=== PATIENT | male | born 1975 | race Caucasian/White ===

== ENCOUNTER 2020-11-06 15:12 | Inpatient (IN) ==
[2020-11-06] MEDS ORDERED: SODIUM CHLORIDE 0.9% 1000ML 1,000 ML IV SCH (15:45)
[2020-11-06] MEDS ORDERED: LORazepam 2 MG/4 ML VIAL IV PRN (15:45)
[2020-11-06] MEDS: NICOTINE 21 MG/24 HR TDSY TD SCH (15:56)
--- NOTE | 2020-11-06 16:20 | CT Scan Report ---
CT head/brain wo con CLINICAL HISTORY: Seizure. Head trauma COMPARISON STUDY: 10/17/2020 TECHNIQUE: Axial CT of the brain is performed from the vertex to the skull base. IV contrast was not administered for this examination. A dose lowering technique was utilized adhering to the principles of ALARA. CT DOSE: 614.27 mGy.cm FINDINGS: No intra or extra-axial mass lesions are visualized. There is no CT evidence of acute cortical infarc tion. There is no evidence of midline shift. There is no acute hemorrhage. No calvarial fractures ar e visualized. There is no evidence of pathologic ventricular dilatation. There is no evidence of acute sinusitis IMPRESSION: No acute intracranial findings ACT 112: Negative or not required by law. Electronically signed by: Ross Booth M.D. 11/06/2020 4:18 PM
[2020-11-06 16:23] LABS: Partial Thromboplastin Time 25.1 Seconds (21.0-31.0); Prothrombin Time 10.4 Seconds (9.0-12.0)
[2020-11-06 16:30] LABS: Blood Urea Nitrogen 9 mg/dl (7-18); Carbon Dioxide 22 mmol/L (21-32); Chloride 109 mmol/L (98-107); Potassium 4.2 mmol/L (3.5-5.1); Sodium 136 mmol/L (136-145)
[2020-11-06 16:31] LABS: Alanine Aminotransferase 27 U/L (12-78); Albumin Level 4.3 gm/dl (3.4-5.0); Aspartate Aminotransferase 11 U/L (15-37); BUN Creatinine Ratio 6.6 (10-20); C Reactive Protein < 0.29 mg/dl (0-0.29); Calcium 9.2 mg/dl (8.5-10.1); Creatinine Clr Calc Pharmacy 75.1 ml/min; Est GFR (Non-African American) 63.8; Glucose 105 mg/dl (70-99); Lipase 63 U/L (73-393); Magnesium 2.8 mg/dl (1.8-2.4)
[2020-11-06 16:40] LABS: Albumin Globulin Ratio 1.2 (0.9-2); Alkaline Phosphatase 47 U/L (45-117); Bilirubin,Total 0.3 mg/dl (0.2-1); Creatine Kinase 194 U/L (39-308); Globulin 3.6 gm/dl (2.5-4.0); Total Protein 7.9 gm/dl (6.4-8.2); Troponin I < 0.015 ng/ml (0-0.045)
[2020-11-06 16:41] LABS: Basophils # (auto) 0.03 K/uL (0-0.2); Basophils % (auto) 0.2 %; Eosinophils # (auto) 0.04 K/uL (0-0.5); Eosinophils % (auto) 0.3 %; Hematocrit (blood only) 42.1 % (42-52); Hemoglobin 14.8 g/dL (14.0-18.0); Immature Granulocytes # (auto) 0.05 K/uL (0.00-0.02); Immature Granulocytes % (auto) 0.4 %; Lymphocytes # (auto) 0.83 K/uL (1.2-3.4); Lymphocytes % (auto) 6.1 %; Mean Corpuscular Hemoglobin 31.5 pg (25-34); Mean Corpuscular Hgb Conc 35.2 g/dL (32-36); Mean Corpuscular Volume 89.6 fL (80-100); Mean Platelet Volume 8.7 fL (7.4-10.4); Monocytes # (auto) 0.74 K/uL (0.11-0.59); Monocytes % (auto) 5.4 %; Neutrophils # (auto) 11.94 K/uL (1.4-6.5); Neutrophils % (auto) 87.6 %; Platelet Count 386 K/uL (130-400); RDW Coefficient of Variation 13.8 % (11.5-14.5); RDW Standard Deviation 45.4 fL (36.4-46.3); White Blood Count 13.63 K/uL (4.8-10.8)
[2020-11-06 16:56] LABS: Lyme Ab IgG w/WB Rflx Negative (Negative); Lyme Ab IgM w/WB Rflx Negative (Negative)
[2020-11-06 17:52] LABS: Influenza A virus by PCR Negative (Neg); Influenza B virus by PCR Negative (Neg); RSV by PCR Negative (Neg); SARS CoV2 RNA(COVID-19) InHosp NEGATIVE (Negative)
[2020-11-06 18:47] LABS: Appearance Urine Clear (Clear); Bilirubin Urine Negative (Negative); Blood Urine Negative (Negative); Color Urine Yellow; Glucose Urine UA Negative (Negative); Ketones Urine Negative (Negative); Leukocyte Esterase Urine Negative (Negative); Nitrite Urine Negative (Negative); Protein Urine Negative (Negative); Specific Gravity Urine 1.011 (1.000-1.030); Urobilinogen Urine Negative (Negative); pH Urine 6.5 (4.5-7.5)
[2020-11-06 19:05] LABS: Amphetamines+Metham, Urine Neg (Neg); Barbiturates, Urine Pos (Neg); Benzodiazepine, Urine Neg (Neg); Cocaine, Urine Neg (Neg); MDMA (Ecstacy), Urine Neg (Neg); Methadone, Urine Neg (Neg); Opiate, Urine Neg (Neg); Phencyclidine, Urine Neg (Neg)
[2020-11-06] MEDS ORDERED: amLODIPine BESYLATE 5 MG TAB PO STA (19:09)
--- NOTE | 2020-11-06 19:13 | History & Physical Report ---
Date of Service November 06, 2020 Assessment & Plan (1) Observed seizure-like activity: Convincing story of tonic-clonic seizures in the setting of hypertension, anxiety, insomnia and caffeine use MRI brain previously normal, no need to repeat this EEG Lorazepam 2 mg IV PRN for further seizures Consult neurology Consider Topamax for migraine prophylaxis, mood stabilization, insomnia and anticonvulsant - will defer starting until after EEG performed. (2) Malignant hypertension: Amlodipine 10mg PO daily Consider addition of propranolol for migraine prophylaxis in addition if continued elevated BP requiring hydralazine Hydralazine 10mg IV PRN (3) Insomnia: Lorazepam 1mg PO HS PRN (try to avoid as may effect EEG results (4) ADHD: Avoid Adderall in setting of recent seizure (5) Anxiety: Significantly agitated on exam, possibly manic although unclear history of true manic episodes. Racing disorganized thoughts would suggest benefit from anti-psychotic but need to avoid in setting of recent seizure. Continue fluoxetine 40mg PO HS Consider addition of Topamax as mood stabilizer as above. Consult psychiatry given flight of ideas with possible shantelle Admission and Anticipated Discharge Date Admission Date: November 06, 2020 History of Present Illness Chief Complaint: Seizure Primary Care Provider: NO PCP Asher Nair is a 45-year-old male who presents to the ER after a seizure. The seizure occurred earlier today and was partially witnessed by his daughter. She reports he had a 1 to 2-minute seizure and from her description sounds tonic-clonic in nature however she did not witness the start of it. With her back turned the patient was coming back from the bathroom to his bed at which point he fell to the ground. She noted his extremities went very stiff and then he started shaking all 4 extremities. The patient bit his tongue. This is similar to his previous seizure when he came to the emergency room approximately 3 weeks ago and left AGAINST MEDICAL ADVICE. His reports his seizures seem to occur when his blood pressure increases, increased stress and insomnia. He is exhausted when he has them. He appears to be most anxious at night and has a snowboarding effect. He reports having his first seizure approximately 1 year ago. He does not feel his seizure coming on. Always bites his tongue. No urine or bowel incontinence. He cannot member what happens during the episode. After the episode he had his postictal and on one occasion cannot remember his 's name. He also notes a longstanding history of hypertension although notes he is previously being inconsistent taking medication and is trying to find the right "one" that works for his blood pressure. He currently reports compliance with amlodipine 10 mg p.o. at bedtime. He takes fluoxetine 40 mg at bedtime for the past 2 years for anxiety. He does report improvement in his anxious thoughts when he was taking 80 mg and is wondering whether he should go back up to this. He has a longstanding history of migraines/cluster headaches as far back as he remembers. He was prescribed opiate prescription medication for 12 years and managed to wean himself off. He describes his migraines as a throbbing pain, pressure, can last for 2 days, pain behind his eyes with associated nausea. Does not feel these coming on and no association with light. He is currently not on any migraine prophylaxis and never tried monoclonal antibody injections. He reports sumatriptan was helpful for the headaches but caused significant side effects with the rest of his body. PDMP was reviewed: Adderall picked up 09/2019: Prescribed for ADHD although he notes some of this pr escription is for his . He reports running out of medication and has not taken for the past 3 weeks. Fioricet with codeine picked up 10/28: reported last taking this 2 months ago however urine toxicology was positive for barbiturates in the ER. Xanax picked up 10/27: The patient reports he has been high strung since he was 14 years old and has been on and off benzodiazepines since then. Most recently he was switched from diazepam back to Xanax. He takes this up to once a day. Last took Xanax 4 to 5 days ago. He is prescribed this by his PCP for anxiety. In the ER no further seizures have occurred. CT head was repeated with no acute intracranial abnormalities. Prolactin has been normal both occasions. Urine toxicology positive for barbiturates. He was referred to medicine for admission ongoing management of seizures. Allergies Allergy/AdvReac Type Severity Reaction Status Date / Time No Known Allergies Allergy Verified 11/06/20 15:48 Home Medications Medication Instructions Recorded Confirmed Type acetaminophen [Tylenol Extra 1,000 mg PO QID PRN 10/17/20 11/06/20 History Strength] alprazolam [Xanax] 2 mg PO BID PRN 10/17/20 11/06/20 History dextroamphetamine-amphetamine 30 mg PO BID 10/17/20 11/06/20 History [Adderall] diphenhydramine HCl [Benadryl] 50 mg PO DAILY PRN 10/17/20 11/06/20 History amlodipine [Norvasc] 0 mg PO DAILY 11/06/20 11/06/20 History fluoxetine 40 mg PO PM 11/06/20 11/06/20 History Past Med/Surg History Medical History ADHD Anxiety History of seizure Hypertension Insomnia Surgical History No pertinent past surgical history Family History Denies family history of Seizure Social History Smoking Status: Former smoker Tobacco Type: E-cigarettes / Vaping Second Hand Exposure: No; Do You Dip or Chew Tobacco: No; Tobacco Cessation Education Requested by Patient: No Hx Alcohol Use: No Hx Substance Use: No Preferred Language: Cambodian Communication Ability: Effective Securities Counselor Required: No Beliefs That Will Affect Care: None marital status: Current Living Situation: Family How many Children do You have: 2 Other Information That Helps Us Care for You: No Feels Safe at Home: Yes Safety Concerns: Feels Safe At This Time caffeine: Yes (Dr Yañez 2-3 20oz) Assistive Devices: None Review of Systems Review of Systems: All systems reviewed & are unremarkable except as noted in HPI & below Physical Exam Constitutional: WD/WN, vitals as above Eyes: PERRL, conjunctivae normal, anicteric sclerae ENMT: external ear and nose normal, oropharynx normal Neck: trachea midline, no thyromegaly Respiratory: normal respiratory effort, lungs clear to auscultation Cardiovascular: RRR, no murmur, no edema Gastrointestinal (Abdomen): normal bowel sounds, soft, nontender, no hepatosplenomegaly Musculoskeletal: no cyanosis or clubbing, extremities motor strength 5/5 Skin: no rashes, warm and dry Neurologic: CN's II-XI intact bilaterally, moves all extremities and awake; no focal motor deficits and not confused Speech / Cognition: normal speech Motor/Sensory: no tremor and no sensory deficit Psychiatric: Orientation: alert and oriented x 3 Eye Contact: + fair eye contact Motor Behavior: + psychomotor agitation Speech: + pressured speech Affect: + anxious affect Mood: + anxious mood Thought Process: + circumstantial thought process and + flight of ideas Thought Content: reality based without delusions Cognition: remote memory grossly intact and language grossly intact; + recent memory not intact and + attention not intact Results & Data Results & Data ([facility]) Vital Signs (Past 12 Hours) Vital Signs Temp Pulse Resp BP Pulse Ox 11/06/20 18:30 101 H 19 174/112 H 97 11/06/20 18:00 95 H 13 167/101 H 97 11/06/20 17:33 84 15 98 11/06/20 17:00 86 13 160/103 H 97 11/06/20 16:30 88 13 97 11/06/20 16:00 94 H 18 135/82 95 11/06/20 15:39 99 H 17 128/86 11/06/20 15:23 37.0 C 110 H 14 120/[address] head/brain wo con IMPRESSION: No acute intracranial findings Medications Administered ER medications given: NSS 1 hour bolus ECG Indication: altered mental status Rate (beats per minute): 97 Rhythm: normal sinus Comparison ECG Date: from (October 17, 2020) Change: no significant change Code Status & VTE Plan Code Status Full VTE Prophylaxis Plan VTE Prophylaxis will be ordered: No Reason for no VTE drug order: Treatment not indicated Reason for no VTE mechanical prophylaxis: Treatment not indicated PG Care Time/CCT Total # of Minutes Spent Total Time Spent with Patient: Total time spent is greater than 50% in coordination of care (as documented) at patient's floor/unit and/or counseling patient: Coding Level of Care Code 38935 OBS Care - Level 3 Diagnoses Observed seizure-like activity R56.9 Malignant hypertension I10 Insomnia F51.04 Insomnia type: psychophysiologic ADHD F90.1 Attention deficit-hyperactivity disorder type: predominantly hyperactive Anxiety F41.9 (1) Insomnia Insomnia type: psychophysiologic Qualified Code(s): F51.04 - Psychophysiologic insomnia (2) ADHD Attention deficit-hyperactivity disorder type: predominantly hyperactive Qualified Code(s): F90.1 - Attention-deficit hyperactivity disorder, predominantly hyperactive type
[2020-11-06] MEDS ORDERED: amLODIPine BESYLATE 5 MG TAB PO SCH (20:48)
[2020-11-06] MEDS ORDERED: hydrALAZINE HCL 20 MG/ML VIAL IV PRN (21:23)
[2020-11-06] MEDS ORDERED: QUEtiapine FUMARATE 25 MG TABLET PO PRN (21:23)
[2020-11-06] MEDS ORDERED: ACETAMINOPHEN 500 MG TAB PO PRN (21:24)
[2020-11-06] MEDS: FLUoxetine HCL 20 MG CAP PO SCH (22:21)
[2020-11-06] MEDS: ACETAMINOPHEN 325 MG TAB PO PRN (22:22)
--- NOTE | 2020-11-06 22:52 | Emergency Department Note ---
History of Present Illness General Chief complaint: Seizure Stated complaint: SEIZURE, STRUCK HEAD Time Seen by Provider: 11/06/20 15:23 History of Present Illness Maximum Pain Intensity: 7 This is a 45-year-old male presenting to the emergency department via ambulance for witnessed seizure episode. The patient was at home this afternoon and was in the bedroom. Evidently he took Benadryl for some sinus congestion and shortly after had a seizure in front of his teenage daughter. The patient did strike his head and have a several minute shaking episode. The patient had a post ictal phase of roughly 10 to 15 minutes, only arousing when police arrived after the daughter called 911. The patient does have a history of 5 or 6 seizures over the past few years. He did have one 3 weeks ago that was very similar to this, however the patient left the emergency department AGAINST MED [facility] ADVICE. He was given information for multiple neurology teams to follow-up with, but has not followed through with this. At that visit he did have imaging including MRI and MRV. He moved to the area from [place] 2 months ago and does not have typical services. He states that previous seizures were felt to be from elevated blood pressure, where at times it was 220/120. He has not had an elevated blood pressure today. He denies drug or alcohol use. The patient did receive Ativan 2 mg prehospital and this did seem to completely resolve his symptoms. He does have some pain in his mouth and may have bit the inside of his lip, but not his tongue. No extremity pain or injury. He rates his current discomfort a 7/10. Home Medications Medication Instructions Recorded Confirmed Type acetaminophen [Tylenol Extra 1,000 mg PO QID PRN 10/17/20 11/06/20 History Strength] alprazolam [Xanax] 2 mg PO BID PRN 10/17/20 11/06/20 History dextroamphetamine-amphetamine 30 mg PO BID 10/17/20 11/06/20 History [Adderall] diphenhydramine HCl [Benadryl] 50 mg PO DAILY PRN 10/17/20 11/06/20 History amlodipine [Norvasc] 0 mg PO DAILY 11/06/20 11/06/20 History fluoxetine 40 mg PO PM 11/06/20 11/06/20 History Allergies Allergy/AdvReac Type Severity Reaction Status Date / Time No Known Allergies Allergy Verified 11/06/20 15:48 Past Med/Surg History Medical History ADHD Anxiety History of seizure Hypertension Insomnia Surgical History No pertinent past surgical history Family History Denies family history of Seizure Social History Smoking Status: Former smoker Tobacco Type: E-cigarettes / Vaping Second Hand Exposure: No; Do You Dip or Chew Tobacco: No; Tobacco Cessation Education Requested by Patient: No Hx Alcohol Use: No Hx Substance Use: No Preferred Language: Portuguese Communication Ability: Effective 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 Beliefs That Will Affect Care: None marital status: Current Living Situation: Family How many Children do You have: 2 Other Information That Helps Us Care for You: No Feels Safe at Home: Yes Safety Concerns: Feels Safe At This Time caffeine: Yes (Dr Yañez 2-3 20oz) Assistive Devices: None Review of Systems A total of 10 systems reviewed and were otherwise negative Physical Exam Vital Signs Vital Signs - 24 hr 11/06/20 15:23 11/06/20 15:39 11/06/20 15:55 Temperature 37.0 C Temperature Source Oral Pulse Rate 110 H 99 H Pulse Rate from SpO2 Sensor Respiratory Rate 14 17 Respiratory Effort / Characteristics Non-Labored Spontaneous Respiratory Depth Normal Respiratory Pattern Regular Blood Pressure 120/73 128/86 Blood Pressure Mean 88 100 Pulse Oximetry 96 Oxygen Delivery Method Room Air Room Air Sepsis Recent Fever Within 48 Hours No Sepsis New/Unexplained Change in Mental Status No Sepsis Action Taken by Nursing No Action Required 11/06/20 16:00 11/06/20 16:30 11/06/20 17:00 Temperature Temperature Source Pulse Rate 94 H 88 86 Pulse Rate from SpO2 Sensor 93 H 87 87 Respiratory Rate 18 13 13 Respiratory Effort / Characteristics Respiratory Depth Respiratory Pattern Blood Pressure 135/82 160/103 H Blood Pressure Mean 99 122 Pulse Oximetry 95 97 97 Oxygen Delivery Method Room Air Room Air Room Air Sepsis Recent Fever Within 48 Hours Sepsis New/Unexplained Change in Mental Status Sepsis Action Taken by Nursing 11/06/20 17:33 11/06/20 18:00 11/06/20 18:30 Temperature Temperature Source Pulse Rate 84 95 H 101 H Pulse Rate from SpO2 Sensor 84 96 H 105 H Respiratory Rate 15 13 19 Respiratory Effort / Characteristics Respiratory Depth Respiratory Pattern Blood Pressure 167/101 H 174/112 H Blood Pressure Mean 123 132 Pulse Oximetry 98 97 97 Oxygen Delivery Method Room Air Room Air Room Air Sepsis Recent Fever Within 48 Hours Sepsis New/Unexplained Change in Mental Status Sepsis Action Taken by Nursing 11/06/20 18:31 Temperature Temperature Source Pulse Rate 92 H Pulse Rate from SpO2 Sensor 92 H Respiratory Rate 17 Respiratory Effort / Characteristics Respiratory Depth Respiratory Pattern Blood Pressure Blood Pressure Mean Pulse Oximetry 97 Oxygen Delivery Method Sepsis Recent Fever Within 48 Hours Sepsis New/Unexplained Change in Mental Status Sepsis Action Taken by Nursing VITALS: Vitals are noted on the nurse's note and reviewed by myself. Vital signs stable. GENERAL: Well-developed, well-nourished, white male, who is in no acute distress and resting comfortably. Patient is cooperative with the examination. HEAD: Normocephalic atraumatic. MOUTH: Mucous membranes moist. Tonsils are not enlarged. Pharynx without erythema, blood, or exudate. Uvula midline. Airway patent. NECK: Supple without nuchal rigidity. No lymphadenopathy. No thyromegaly. C ervical spine is nontender. HEART: Regular rate and rhythm without murmurs gallops or rubs. LUNGS: Clear to auscultation bilaterally without wheezes, rales or rhonchi. No retractions or accessory muscle use. ABDOMEN: Positive normal bowel sounds x 4. Soft, nontender, without masses or organomegaly. No guarding or rebound tenderness. MUSCULOSKELETAL: No muscle atrophy, erythema, or edema noted. Full range of motion in all extremities. NEURO: Patient was alert and oriented to person place and time. CN II through XII grossly intact. GCS 15 Course Administered Medications Acetaminophen (Acetaminophen 325 Mg Tab) 650 mg PO Q4H PRN PRN Reason: Pain or Fever Stop: 12/06/20 20:47 Last Admin: 11/06/20 22:22 Dose: 650 mg Documented by: [id number] Fluoxetine HCl (Fluoxetine Hcl 20 Mg Cap) 40 mg PO PM NICHOLAS Stop: 12/06/20 21:24 Last Admin: 11/06/20 22:21 Dose: 40 mg Documented by: [id number] Nicotine (Nicotine 21 Mg/24 Hr Tdsy) 21 mg TD QAM NICHOLAS Stop: 12/06/20 15:44 Last Admin: 11/06/20 15:56 Dose: 21 mg Documented by: [id number] Discontinued Medications Amlodipine Besylate (Amlodipine Besylate 5 Mg Tab) 5 mg PO NOW STA Stop: 11/06/20 19:10 Last Admin: 11/06/20 19:26 Dose: 5 mg Documented by: [id number] Amlodipine Besylate (Amlodipine Besylate 5 Mg Tab) 5 mg PO DAILY NICHOLAS Stop: 12/06/20 20:47 Last Admin: 11/06/20 21:17 Dose: 5 mg Documented by: [id number] Sodium Chloride (Nss 1000ml) 1,000 mls @ 999 mls/hr IV .Q1H1M NICHOLAS Stop: 11/06/20 16:45 Last Infusion: 11/06/20 16:59 Dose: 0 mls/hr Documented by: [id number] Admin: 11/06/20 15:58 Dose: 999 mls/hr Documented by: [id number] Medical Decision Making Differential Diagnosis Differential diagnosis: Etiologies such as Seizure, benign positional vertigo, labrynthitis, dehydration, hypovolemia, anemia, tumor, infection, hypoglycemia, electrolyte abnormalities, cardiac sources, toxicological sources, central neurologic process, as well as others were entertained. Laboratory Data Result diagrams: 11/06/20 15:52 11/06/20 15:52 Lab Results 11/06/20 11/06/20 11/06/20 Range/Units 15:52 15:52 15:52 WBC 13.63 H (4.8-10.8) K/uL RBC 4.70 (4.7-6.1) M/uL Hgb 14.8 (14.0-18.0) g/dL Hct 42.1 (42-52) % MCV 89.6 (80-100) fL MCH 31.5 (25-34) pg MCHC 35.2 (32-36) g/dL RDW Std Deviation 45.4 (36.4-46.3) fL RDW Coeff of [place] 13.8 (11.5-14.5) % Plt Count 386 (130-400) K/uL MPV 8.7 (7.4-10.4) fL Immature Gran % (Auto) 0.4 % Neut % (Auto) 87.6 % Lymph % (Auto) 6.1 % Bowman % (Auto) 5.4 % Eos % (Auto) 0.3 % Baso % (Auto) 0.2 % Neut # (Auto) 11.94 H (1.4-6.5) K/uL Lymph # (Auto) 0.83 L (1.2-3.4) K/uL Bowman # (Auto) 0.74 H (0.11-0.59) K/uL Eos # (Auto) 0.04 (0-0.5) K/uL Baso # (Auto) 0.03 (0-0.2) K/uL Immature Gran # (Auto) 0.05 H (0.00-0.02) K/uL ESR (0-15) mm/hr PT 10.4 (9.0-12.0) Seconds INR 1.0 (0.9-1.1) APTT 25.1 (21.0-31.0) Seconds PTT Ratio 1.0 Sodium 136 (136-145) mmol/L Potassium 4.2 (3.5-5.1) mmol/L Chloride 109 H (98-107) mmol/L Carbon Dioxide 22 (21-32) mmol/L Anion Gap 6.0 (3-11) BUN 9 (7-18) mg/dl Creatinine 1.35 (0.6-1.4) mg/dl Est Cr Clr Drug Dosing 75.1 ml/min Est GFR ( Amer) 74.0 Est GFR (Non-Af Amer) 63.8 BUN/Creatinine Ratio 6.6 L (10-20) Glucose 105 H (70-99) mg/dl Calcium 9.2 (8.5-10.1) mg/dl Magnesium 2.8 H (1.8-2.4) mg/dl Total Bilirubin 0.3 (0.2-1) mg/dl AST 11 L (15-37) U/L ALT 27 (12-78) U/L Alkaline Phosphatase 47 (45-117) U/L Total Creatine Kinase 194 (39-308) U/L Troponin I < 0.015 (0-0.045) ng/ml C-Reactive Protein < 0.29 (0-0.29) mg/dl Total Protein 7.9 (6.4-8.2) gm/dl Albumin 4.3 (3.4-5.0) gm/dl Globulin 3.6 (2.5-4.0) gm/dl Albumin/Globulin Ratio 1.2 (0.9-2) Lipase 63 L (73-393) U/L TSH 2.050 (0.300-4.500) uIu/ml Prolactin ng/ml Ethyl Alcohol mg/dL (0-3) mg/dl Lyme Disease IgG Ab (Negative) Lyme Disease IgM Ab (Negative) COVID-19 Eval Order SARS-CoV-2 (PCR) (Negative) Influenza Type A (PCR) (Neg) Influenza Type B (PCR) (Neg) RSV (RT-PCR) (Neg) 11/06/20 11/06/20 11/06/20 Range/Units 15:52 15:52 15:52 WBC (4.8-10.8) K/uL RBC (4.7-6.1) M/uL Hgb (14.0-18.0) g/dL Hct (42-52) % MCV (80-100) fL MCH (25-34) pg MCHC (32-36) g/dL RDW Std Deviation (36.4-46.3) fL RDW Coeff of [place] (11.5-14.5) % Plt Count (130-400) K/uL MPV (7.4-10.4) fL Immature Gran % (Auto) % Neut % (Auto) % Lymph % (Auto) % Bowman % (Auto) % Eos % (Auto) % Baso % (Auto) % Neut # (Auto) (1.4-6.5) K/uL Lymph # (Auto) (1.2-3.4) K/uL Bowman # (Auto) (0.11-0.59) K/uL Eos # (Auto) (0-0.5) K/uL Baso # (Auto) (0-0.2) K/uL Immature Gran # (Auto) (0.00-0.02) K/uL ESR (0-15) mm/hr PT (9.0-12.0) Seconds INR (0.9-1.1) APTT (21.0-31.0) Seconds PTT Ratio Sodium (136-145) mmol/L Potassium (3.5-5.1) mmol/L Chloride (98-107) mmol/L Carbon Dioxide (21-32) mmol/L Anion Gap (3-11) BUN (7-18) mg/dl Creatinine (0.6-1.4) mg/dl Est Cr Clr Drug Dosing ml/min Est GFR ( Amer) Est GFR (Non-Af Amer) BUN/Creatinine Ratio (10-20) Glucose (70-99) mg/dl Calcium (8.5-10.1) mg/dl Magnesium (1.8-2.4) mg/dl Total Bilirubin (0.2-1) mg/dl AST (15-37) U/L ALT (12-78) U/L Alkaline Phosphatase (45-117) U/L Total Creatine Kinase (39-308) U/L Troponin I (0-0.045) ng/ml C-Reactive Protein (0-0.29) mg/dl Total Protein (6.4-8.2) gm/dl Albumin (3.4-5.0) gm/dl Globulin (2.5-4.0) gm/dl Albumin/Globulin Ratio (0.9-2) Lipase (73-393) U/L TSH (0.300-4.500) uIu/ml Prolactin 12.48 ng/ml Ethyl Alcohol mg/dL < 3.0 (0-3) mg/dl Lyme Disease IgG Ab Negative (Negative) Lyme Disease IgM Ab Negative (Negative) COVID-19 Eval Order SARS-CoV-2 (PCR) (Negative) Influenza Type A (PCR) (Neg) Influenza Type B (PCR) (Neg) RSV (RT-PCR) (Neg) 11/06/20 11/06/20 11/06/20 Range/Units 16:00 16:55 16:55 WBC (4.8-10.8) K/uL RBC (4.7-6.1) M/uL Hgb (14.0-18.0) g/dL Hct (42-52) % MCV (80-100) fL MCH (25-34) pg MCHC (32-36) g/dL RDW Std Deviation (36.4-46.3) fL RDW Coeff of [place] (11.5-14.5) % Plt Count (130-400) K/uL MPV (7.4-10.4) fL Immature Gran % (Auto) % Neut % (Auto) % Lymph % (Auto) % Bowman % (Auto) % Eos % (Auto) % Baso % (Auto) % Neut # (Auto) (1.4-6.5) K/uL Lymph # (Auto) (1.2-3.4) K/uL Bowman # (Auto) (0.11-0.59) K/uL Eos # (Auto) (0-0.5) K/uL Baso # (Auto) (0-0.2) K/uL Immature Gran # (Auto) (0.00-0.02) K/uL ESR 11 (0-15) mm/hr PT (9.0-12.0) Seconds INR (0.9-1.1) APTT (21.0-31.0) Seconds PTT Ratio Sodium (136-145) mmol/L Potassium (3.5-5.1) mmol/L Chloride (98-107) mmol/L Carbon Dioxide (21-32) mmol/L Anion Gap (3-11) BUN (7-18) mg/dl Creatinine (0.6-1.4) mg/dl Est Cr Clr Drug Dosing ml/min Est GFR ( Amer) Est GFR (Non-Af Amer) BUN/Creatinine Ratio (10-20) Glucose (70-99) mg/dl Calcium (8.5-10.1) mg/dl Magnesium (1.8-2.4) mg/dl Total Bilirubin (0.2-1) mg/dl AST (15-37) U/L ALT (12-78) U/L Alkaline Phosphatase (45-117) U/L Total Creatine Kinase (39-308) U/L Troponin I (0-0.045) ng/ml C-Reactive Protein (0-0.29) mg/dl Total Protein (6.4-8.2) gm/dl Albumin (3.4-5.0) gm/dl Globulin (2.5-4.0) gm/dl Albumin/Globulin Ratio (0.9-2) Lipase (73-393) U/L TSH (0.300-4.500) uIu/ml Prolactin ng/ml Ethyl Alcohol mg/dL (0-3) mg/dl Lyme Disease IgG Ab (Negative) Lyme Disease IgM Ab (Negative) COVID-19 Eval Order CovFluRsv at [facility] SARS-CoV-2 (PCR) NEGATIVE (Negative) Influenza Type A (PCR) Negative (Neg) Influenza Type B (PCR) Negative (Neg) RSV (RT-PCR) Negative (Neg) Imaging Data Radiologist's Impression: Head CT 11/06/20 15:38 CT head/brain wo con CLINICAL HISTORY: Seizure. Head trauma COMPARISON STUDY: 10/17/2020 TECHNIQUE: Axial CT of the brain is performed from the vertex to the skull base. IV contrast was not administered for this examination. A dose lowering technique was utilized adhering to the principles of ALARA. CT DOSE: 614.27 mGy.cm FINDINGS: No intra or extra-axial mass lesions are visualized. There is no CT evidence of acute cortical infarction. There is no evidence of midline shift. There is no acute hemorrhage. No calvarial fractures are visualized. There is no evidence of pathologic ventricular dilatation. There is no evidence of acute sinusitis IMPRESSION: No acute intracranial findings ACT 112: Negative or not required by law. Electronically signed by: Ross Booth M.D. 11/06/2020 4:18 PM ECG Data Attestation: I personally reviewed and interpreted this ECG as follows: Additional Comments: Normal sinus rhythm @[address] elevation Possible Left atrial enlargement Borderline ECG When compared with ECG of 17-OCT-2020 19:31, No significant change was found MDM Narrative Physical exam and history were performed. Nursing notes, EMR, and Medication List were personally reviewed. Patient appears to have a witnessed seizure at home today. The patient's daughter is here in the ER and her history does seem consistent with a seizure. IV access was established and labs were obtained. The patient was hydrated with normal saline. The patient was cared for under seizure precautions and as needed Ativan was ordered. CT scan of the head was performed. An order was placed for continuous cardiac monitoring. The monitor shows a rate of 98 with normal sinus rhythm. The patient blood work is as above and was reviewed. He does have an elevated white blood cell count of 13,000. He does not have a significant anemia, bandemia, or gross electrolyte imbalance. Troponin x1 is negative. Lipase and transaminases are not diagnostic. Urine does not show gross infection. Alcohol is negative. Drug abuse screen is negative. Covid, influenza, and RSV are also negative. CT scan was reviewed by myself and radiology showing no acute process. The patient remained in stable condition throughout his ER stay. The patient does not seem well for discharge home. He has now had multiple seizures in a short interval. He recently moved to this area and has not established with neurology. He has never been on antiseizure medication, and it seems that he is primarily been on blood pressure medication which he states he is taking. Overall I have concern for his presentation. The case was discussed with the on-call hospitalist team who agreed to evaluate him here in the department. Please see their dictation for further patient course, plan, and disposition. The chart was completed utilizing [employer] Speech Voice Recognition Software. Grammatical errors, random word insertions, pronoun errors, and incomplete sentences are an occasional consequence of this system due to software limitations, ambient noise, and hardware issues. Any formal questions or concerns about the content, text, or information contained within the body of this dictation should be directly addressed to the provider for clarification. . Impression & Plan Observed seizure-like activity, Fall, Head injury Discharge Plan Visit Data Chief Complaint: Seizure Stated Complaint: SEIZURE, STRUCK HEAD ED Provider: Christopher Murcia ED Midlevel Provider: Geoffrey Zarco Discharge Problem: Observed seizure-like activity, Fall, Head injury Patient Disposition: Admitted As Inpatient Discharge Instructions Interventions: ED Discharge Assessment Last Done: 11/06/20 20:41
[2020-11-07] MEDS: LORazepam 1 MG TAB PO PRN ×2 (00:35→23:30)
[2020-11-07] MEDS: KETOROLAC TROMETHAMINE 15 MG/ML VIAL IV PRN ×3 (00:35→15:45)
[2020-11-07] MEDS ORDERED: MoRPHine SULFATE 2 MG/ML CARP IV STA (03:07)
[2020-11-07] MEDS: NICOTINE 21 MG/24 HR TDSY TD SCH (07:59)
[2020-11-07] MEDS ORDERED: amLODIPine BESYLATE 5 MG TAB PO SCH (09:00)
--- NOTE | 2020-11-07 10:17 | Neurology Consultation ---
Date of Consultation November 07, 2020 Assessment & Plan (1) Anxiety: (2) Observed seizure-like activity: Asher Nair is a 45 yo man w/ PMH of anxiety, insomnia, HTN, ADHD, vaping and h/o seizure who p/t [facility] with seizure. # Seizure like activity: unclear if this was convulsive syncope from arrhythmia vs provoked event in the setting of multiple possible triggers (insomnia, unclear xanax usage, adderall usage, caffeine abuse). - EEG pending - no clear underlying abnormality noted on MRI brain from prior and given no AG/normal prolactin, unclear that this was actually a seizure. Would not start an AED at this time given likely provoked events - recommend 30 day event monitor vs loop recorder to r/o arrhythmia - recommend TTE to r/o underlying cardiac abnormality - recommend transitioning xanax to longer acting benzo and weaning off as this puts him at risk for provoked seizures - also recommend transitioning off of Adderall as this can lower seizure threshold - needs f/u in neurology clinic in the next 4-6 weeks after completion of testing to check in on headaches - could consider depakote to help with headaches and likely bipolar disorder given what appears to be shantelle currently (would not give this for seizures, just mood/headaches) Thank you for this interesting consult. Plan of care discussed with primary team. Please call or text with questions. History of Present Illness Attending Physician: Lenny Alcaraz MD History of Present Illness Asher Nair is a 45 yo man w/ PMH of anxiety, insomnia, HTN, ADHD, vaping and h/o seizure who p/t [facility] with seizure. In the ED, he reported that he has had several seizures in the past in the setting of HTNsive emergency/urgency. He was seen at [facility] several weeks ago for a similar event and left AMA prior to being fully assessed. Has not followed up with local neurology yet. Vitals showed that he was afebrile, BP 120/73, heart rate 110, respiratory 14, satting 96% room air. Labs notable for WBC 13.63, hemoglobin 14.8, platelets 86, electrolytes within normal, creatinine elevated 1.35, glucose 105, INR 1, normal anion gap, LFTs within normal, magnesium slightly high at 2.8, calcium within normal, CK 194, troponin negative, CRP less than 0.29, lipase within normal, TSH within normal, alcohol level negligible, Lyme disease negative, prolactin 12.48 (WNL), ESR within normal at 11, Covid negative, UA negative for infection, UDS positive for barbiturates (prior UDS was positive for Xanax which he is prescribed). Imaging independently reviewed. CT head shows no hemorrhage or hypodensity. Prior MRI brain from 10/17/2020 also in the past. And shows no cortical dysplasia, hippocampal sclerosis or other abnormality. MRV was also negative for CVST. On examination, he was significantly tangential but reports that he has slept only 2 hours in the last few days (this has occurred in the past on multiple occasions). He notes that he recently stopped xanax and adderall since he ran out of refills. Still drinking about 60oz of dr pepper daily with occasional iced tea. Concerned about jerkiness of his extremity movements. Endorses having h/o panic attacks that are sometimes followed by LoC event. He reports that he had anxiety and heart racing prior to event yesterday, then LoC where daughter reported that he shook briefly, followed by 10-15 minutes of LoC. Denies loss of bowel/bladder or tongue biting. Similar to prior events a/w panic attacks or high blood pressure. Denies any seizure risk factors, including , complications, h/o meningitis/encephalitis, h/o TBI, family h/o seizures or significant drug/alcohol abuse. Does have excessive caffeine intake and currently vapes. Endorses having a h/o chronic migraines not currently on any treatment. Allergies Allergy/AdvReac Type Severity Reaction Status Date / Time No Known Allergies Allergy Verified 11/06/20 15:48 Home Medications Medication Instructions Recorded Confirmed Type acetaminophen [Tylenol Extra 1,000 mg PO QID PRN 10/17/20 11/06/20 History Strength] alprazolam [Xanax] 2 mg PO BID PRN 10/17/20 11/06/20 History dextroamphetamine-amphetamine 30 mg PO BID 10/17/20 11/06/20 History [Adderall] diphenhydramine HCl [Benadryl] 50 mg PO DAILY PRN 10/17/20 11/06/20 History amlodipine [Norvasc] 0 mg PO DAILY 11/06/20 11/06/20 History fluoxetine 40 mg PO PM 11/06/20 11/06/20 History Patient History Medical History ADHD Anxiety History of seizure Hypertension Insomnia Surgical History No pertinent past surgical history Family History Denies family history of Seizure Social History Smoking Status: Former smoker Tobacco Type: E-cigarettes / Vaping Second Hand Exposure: No; Do You Dip or Chew Tobacco: No; Tobacco Cessation Education Requested by Patient: No Hx Alcohol Use: No Hx Substance Use: No Preferred Language: Swedish Communication Ability: Effective Hr Representative Required: No Beliefs That Will Affect Care: None marital status: Current Living Situation: Family How many Children do You have: 2 Other Information That Helps Us Care for You: No Feels Safe at Home: Yes Safety Concerns: Feels Safe At This Time caffeine: Yes (Dr Yañez 2-3 20oz) Assistive Devices: None Review of Systems Review of Systems: 14 point review of systems completed and negative except as in HPI. Exam (Neuro) Physical Exam: General Exam: GEN: NAD, lying in bed HEENT: No conjunctival injection, no rhinorrhea. CV: RRR, no peripheral edema PULM: Nonlabored respirations on room air. Neuro Exam: MS: Awake and Alert. Oriented to person, place, and date. Speech fluent and appropriate without dysarthria or paraphasic errors. Language intact including naming, comprehension, repetition. Cognition and memory mildly impaired. Inattentive, tangential, rapid flight of ideas. No neglect. CN: Visual tabares full. No extinction to double simultaneous stimuli. Unable to visualize fundi on fundoscopic exam. PERRLA OU. EOMI without nystagmus. Facial sensation intact to LT. Facial muscles full and symmetric. Hearing intact to conversation. Shoulder shrug normal. Tongue midline. MOTOR: Normal bulk and tone. No pronator drift. BUE strength 5/5 at deltoids, biceps, triceps, wrist flexors and extensors, and hand grasp bilaterally. BLE strength 5/5 at iliopsoas, hamstrings, quadriceps, tibialis anterior, and gastrocnemius bilaterally. REFLEXES: 2+ at biceps, triceps, brachioradialis, patella and Achilles bilaterally. Flexor plantar responses bilaterally. SENSORY: Intact to LT without extinction to double simultaneous stimuli. Vibration intact throughout. COORDINATION: No dysmetria or ataxia on [id number] bilaterally. Normal Jesus Manuel bilaterally. Mild high frequency tremor on outstretch in arms and legs. GAIT: deferred (getting hooked up to EEG at time of examination) Results & Data ([facility]) Vital Signs (Past 12 Hours) Vital Signs Temp Pulse Pulse Resp BP Pulse Ox 11/07/20 07:02 36.6 C 83 19 169/91 H 97 11/07/20 07:00 85 11/07/20 03:35 36.9 C 78 18 181/97 H 97 11/07/20 02:37 108 H 11/06/20 22:56 37.1 C 103 H 22 180/64 H 97 PG Care Time/CCT Total # of Minutes Spent Total Time Spent with Patient: Total time spent is greater than 50% in coordination of care (as documented) at patient's floor/unit and/or counseling patient: Coding Level of Care Code 28181 Inpt Consult Level 5 Diagnoses Anxiety F41.9 Observed seizure-like activity R56.9
[2020-11-07] MEDS: ALPRAZolam 0.5 MG TABLET PO PRN ×2 (12:19→20:58)
--- NOTE | 2020-11-07 14:49 | Hospitalist Progress Note ---
Date of Service November 07, 2020 Assessment & Plan (1) Observed seizure-like activity: Convincing story of tonic-clonic seizures in the setting of hypertension, anxiety, insomnia, and caffeine use. - MRI brain previously normal on 10/17/2020, no need to repeat this. - EEG pending - Lorazepam 2 mg IV PRN for further seizures - Consulted neurology -> No indication for AED at this time. Will see what EEG shows. Discharge with Holter monitor to check for arrthymia. (2) Malignant hypertension: BP is 175/100 today. - Continue amlodipine 10mg PO daily - Consider addition of propranolol for migraine prophylaxis in addition if continued elevated BP requiring hydralazine - Hydralazine 10 mg IV PRN (3) Insomnia: - Lorazepam 1mg PO HS PRN (try to avoid as may effect EEG results) (4) ADHD: Avoid Adderall in setting of recent seizure as this can lower seizure threshold. (5) Anxiety: Significantly agitated on exam, possibly manic although unclear history of true manic episodes. - Continue fluoxetine 40mg PO HS - Consulted psychiatry given flight of ideas with possible shantelle (6) DVT prophylaxis: SCDs - Low DVT risk per admission calculator Admission and Anticipated Discharge Date Admission Date: November 06, 2020 Subjective Doing well today. No major concerns. Reports no fevers/chills, chest pain, shortness of breath, abdominal pain, nausea, or vomiting. Physical Exam Constitutional: WD/WN, vitals as above Eyes: EOM intact bilaterally; no conjunctival abnormality ENMT: external ear and nose normal, oropharynx normal Neck: trachea midline, no thyromegaly normal visual inspection Respiratory: normal respiratory effort, lungs clear to auscultation no respiratory distress Cardiovascular: RRR, no murmur, no edema Gastrointestinal (Abdomen): Inspection/Auscultation: abdomen normal to inspection; abdomen not distended Musculoskeletal: no cyanosis or clubbing, extremities motor strength 5/5 Skin: no rashes, warm and dry Neurologic: moves all extremities and awake Psychiatric: Orientation: alert, oriented to person and cooperative Motor Behavior: + psychomotor agitation Affect: + elated affect Results & Data Results & Data ([facility]) Vital Signs (Past 12 Hours) Vital Signs Temp Pulse Pulse Resp BP Pulse Ox 11/07/20 11:15 36.7 C 74 20 174/99 H 96 11/07/20 07:02 36.6 C 83 19 169/91 H 97 11/07/20 07:00 85 11/07/20 03:35 36.9 C 78 18 181/97 H 97 PG Care Time/CCT Total # of Minutes Spent Total Time Spent with Patient: Total time spent is greater than 50% in coordination of care (as documented) at patient's floor/unit and/or counseling patient: Coding Level of Care Code 95961 Subseq Hosp Care Lvl 2 Diagnoses Observed seizure-like activity R56.9 Malignant hypertension I10 Insomnia F51.04 Insomnia type: psychophysiologic ADHD F90.1 Attention deficit-hyperactivity disorder type: predominantly hyperactive Anxiety F41.9 DVT prophylaxis Z29.9 (1) Insomnia Insomnia type: psychophysiologic Qualified Code(s): F51.04 - Psychophysiologic insomnia (2) ADHD Attention deficit-hyperactivity disorder type: predominantly hyperactive Qualified Code(s): F90.1 - Attention-deficit hyperactivity disorder, predominantly hyperactive type
--- NOTE | 2020-11-07 15:08 | Psychiatric Consultation ---
Date of Consultation November 07, 2020 Impression / Recommendations Impression 45 yo male with hx of anxiety and substance misuse presenting "out" of high dose regular release Adderall and Xanax, the later of which can cause significant withdrawal including restlessness, insomnia, hypertension and seizures. Reviewed with the patient that no local prescribers will fill his Xanax or Adderall but he would still benefit from ongoing care and liaison will provider local resource book and confirm insurance. He does not appear manic to me at this time and it seems safe to continue Prozac at current dose. Reviewed that unclear if any anti seizure medication will be recommended. Defer to hospitalist service re: tx for benzo withdrawal, I've seen Neurontin help and may help sleep. There is no indication for inpatient psychiatric hospitalization at this time. Risk Factors Assessment Do You Have Access To A Gun?: No Psych History Identifying Data 45 yo male with a hx of Lortab abuse presents to ED for 2nd time in 1 month for seizure like activity. Consult is by admitting hospitalist for racing thoughts, insomnia, ?shantelle. Chief Complaint "yeah I've been anxious/jittery. I talk fast at baseline though". History of Present Illness Last presentation left AMA. Current concerns about HTN, stress. Neurology reportedly recommending longer acting benzo so less likely to trigger seizure if stops. Patient moved to [facility] 3 months ago from [place]. Remains under care of a Dr. Stinson in [place] in [place] for ADHD medication and benzodiazepine. Admits to taking up to 3 Adderall ?30 mg a day, ran out 3 weeks ago but claims that uses the same rx for "insurance purposes" as with Xanax 2 mg BID #60 on 10/27 ?also out. States previously on Valium. Prozac is reportedly by another prescriber for anxiety. Denies any history of bipolar do dx. Re: sleep patient states that not sure why past 3 days have been so difficult and that sleep deprivation is what he attributes seizure to. Past Psychiatric History Current Psychiatric Diagnosis: anxiety, ?ADHD (no testing) Outpatient Services: none, just relocated Previous Psych Admissions: denied Do You Have Access To A Gun?: No History of Previous Suicide Attempt: No Allergies Allergy/AdvReac Type Severity Reaction Status Date / Time No Known Allergies Allergy Verified 11/06/20 15:48 Home Medications Medication Instructions Recorded Confirmed Type acetaminophen [Tylenol Extra 1,000 mg PO QID PRN 10/17/20 11/06/20 History Strength] alprazolam [Xanax] 2 mg PO BID PRN 10/17/20 11/06/20 History dextroamphetamine-amphetamine 30 mg PO BID 10/17/20 11/06/20 History [Adderall] diphenhydramine HCl [Benadryl] 50 mg PO DAILY PRN 10/17/20 11/06/20 History amlodipine [Norvasc] 0 mg PO DAILY 11/06/20 11/06/20 History fluoxetine 40 mg PO PM 11/06/20 11/06/20 History Family History denies Substance Abuse History denies ETOH, was on suboxone Personal History Born In: [place] Highest Grade Completed: Some College Employment Status: Unemployed Marital Status: Number Of Children: daughter local Beliefs That Will Affect Care: None History of Legal Problems: denied Patient History Medical History ADHD Anxiety History of seizure Hypertension Insomnia Surgical History No pertinent past surgical history Family History Denies family history of Seizure Social History Smoking Status: Former smoker Tobacco Type: E-cigarettes / Vaping Second Hand Exposure: No; Do You Dip or Chew Tobacco: No; Tobacco Cessation Education Requested by Patient: No Hx Alcohol Use: No Hx Substance Use: No Preferred Language: Gambian Communication Ability: Effective 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 Beliefs That Will Affect Care: None marital status: Current Living Situation: Family How many Children do You have: 2 Other Information That Helps Us Care for You: No Feels Safe at Home: Yes Safety Concerns: Feels Safe At This Time caffeine: Yes (Dr Yañez 2-3 20oz) Assistive Devices: None Physical Exam Psychiatric: Orientation: alert, oriented x 3, oriented to person and cooperative Eye Contact: + fair eye contact Motor Behavior: no abnormal motor movements; no psychomotor agitation Speech: normal rate/rhythm/volume of speech (fast at times but able to regulate) Affect: + anxious affect Mood: + anxious mood Thought Process: + circumstantial thought process Thought Content: reality based without delusions Suicidal Thoughts: denies suicidal thoughts Homicidal Thoughts: denies homicidal thoughts Hallucinations: no auditory hallucinations and no visual hallucinations Co gnition: remote memory grossly intact and language grossly intact Vital Signs (Past 24 Hours): Last Vital Signs Temp 36.7 C 11/07/20 11:15 Pulse 74 11/07/20 11:15 Resp 20 11/07/20 11:15 BP 174/99 H 11/07/20 11:15 Pulse Ox 96 11/07/20 11:15 Review of Systems All systems reviewed & are unremarkable except as noted in HPI & below Results & Data (PSY) Medications Administered Acetaminophen (Acetaminophen 325 Mg Tab) 650 mg PO Q4H PRN PRN Reason: Pain or Fever Stop: 12/06/20 20:47 Last Admin: 11/06/20 22:22 Dose: 650 mg Documented by: [id number] Alprazolam (Alprazolam 0.5 Mg Tablet) 1 mg PO TID PRN PRN Reason: Anxiety/Agitation Stop: 12/07/20 12:03 Last Admin: 11/07/20 12:19 Dose: 1 mg Documented by: [id number] Amlodipine Besylate (Amlodipine Besylate 5 Mg Tab) 10 mg PO DAILY NICHOLAS Stop: 12/07/20 08:59 Last Admin: 11/07/20 07:57 Dose: 10 mg Documented by: [id number] Fluoxetine HCl (Fluoxetine Hcl 20 Mg Cap) 40 mg PO PM NICHOLAS Stop: 12/06/20 21:24 Last Admin: 11/06/20 22:21 Dose: 40 mg Documented by: [id number] Ketorolac Tromethamine (Ketorolac Tromethamine 15 Mg/Ml Vial) 15 mg IV Q6H PRN PRN Reason: Pain Stop: 11/11/20 21:24 Last Admin: 11/07/20 07:57 Dose: 15 mg Documented by: [id number] Admin: 11/07/20 00:35 Dose: 15 mg Documented by: [id number] Lorazepam (Lorazepam 1 Mg Tab) 1 mg PO QPM PRN PRN Reason: Insomnia Stop: 12/06/20 21:33 Last Admin: 11/07/20 00:35 Dose: 1 mg Documented by: [id number] Miscellaneous (Remove Nicoderm Patch) 1 ea N/A DAILY@0859 [facility] Stop: 12/07/20 08:58 Last Admin: 11/07/20 06:23 Dose: 1 ea Documented by: [id number] Nicotine (Nicotine 21 Mg/24 Hr Tdsy) 21 mg TD QAM [facility] Stop: 12/06/20 15:44 Last Admin: 11/07/20 07:59 Dose: Not Given Documented by: [id number] Admin: 11/06/20 15:56 Dose: 21 mg Documented by: [id number] Coding Level of Care Code 63172 [facility] Intl Hosp Care Lvl 2
[2020-11-07] MEDS: FLUoxetine HCL 20 MG CAP PO SCH (20:58)
--- NOTE | 2020-11-07 21:47 | Electrocardiogram Report ---
Test Reason : Blood Pressure : / mmHG Vent. Rate : 097 BPM Atrial Rate : 097 BPM P-R Int : 130 ms QRS Dur : 102 ms QT Int : 364 ms P-R-T Axes : 038 020 036 degrees QTc Int : 462 ms Normal sinus rhythm Possible Left atrial enlargement Borderline ECG When compared with ECG of 17-OCT-2020 19:31, No significant change was found Confirmed by Hernandez Dexter ([id number]) on 11/07/2020 9:46:58 PM Referred By: Confirmed By:Hernandez Dexter
[2020-11-08] MEDS: KETOROLAC TROMETHAMINE 15 MG/ML VIAL IV PRN (03:50)
[2020-11-08] MEDS: ACETAMINOPHEN 325 MG TAB PO PRN (03:50)
--- NOTE | 2020-11-08 06:55 | Communication Note ---
Date of Service: November 08, 2020 Called to patient's bedside at 645am by nursing stating that patient wanted to leave AMA. In speaking with the patient, he wants to leave now because his fat her is sick. I advised him that we are still waiting on lab results, EEG results, and for day team and Neurology to complete their assessment. 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 He verbalized understanding and after signing paperwork left the premises. Clinical coordinator Tung made aware of this event. Resident Activity Tracking Resident Involvement: Resident Care Provided Care Provided: Adult Hospital Medicine
--- NOTE | 2020-11-08 12:08 | Discharge Summary ---
Date of Service November 08, 2020 Admission HPI Per Admitting Provider Asher Nair is a 45-year-old male who presents to the ER after a seizure. The seizure occurred earlier today and was partially witnessed by his daughter. She reports he had a 1 to 2-minute seizure and from her description sounds tonic-clonic in nature however she did not witness the start of it. With her back turned the patient was coming back from the bathroom to his bed at which point he fell to the ground. She noted his extremities went very stiff and then he started shaking all 4 extremities. The patient bit his tongue. This is similar to his previous seizure when he came to the emergency room ap proximately 3 weeks ago and left AGAINST MEDICAL ADVICE. His reports his seizures seem to occur when his blood pressure increases, increased stress and insomnia. He is exhausted when he has them. He appears to be most anxious at night and has a snowboarding effect. He reports having his first seizure approximately 1 year ago. He does not feel his seizure coming on. Always bites his tongue. No urine or bowel incontinence. He cannot member what happens during the episode. After the episode he had his postictal and on one occasion cannot remember his 's name. He also notes a longstanding history of hypertension although notes he is previously being inconsistent taking medication and is trying to find the right "one" that works for his blood pressure. He currently reports compliance with amlodipine 10 mg p.o. at bedtime. He takes fluoxetine 40 mg at bedtime for the past 2 years for anxiety. He does report improvement in his anxious thoughts when he was taking 80 mg and is wondering whether he should go back up to this. He has a longstanding history of migraines/cluster headaches as far back as he remembers. He was prescribed opiate prescription medication for 12 years and managed to wean himself off. He describes his migraines as a throbbing pain, pressure, can last for 2 days, pain behind his eyes with associated nausea. Does not feel these coming on and no association with light. He is currently not on any migraine prophylaxis and never tried monoclonal antibody injections. He reports sumatriptan was helpful for the headaches but caused significant side effects with the rest of his body. PDMP was reviewed: Adderall picked up 09/2019: Prescribed for ADHD although he notes some of this prescription is for his . He reports running out of medication and has not taken for the past 3 weeks. Fioricet with codeine picked up 10/28: reported last taking this 2 months ago however urine toxicology was positive for barbiturates in the ER. Xanax picked up 10/27: The patient reports he has been high strung since he was 14 years old and has been on and off benzodiazepines since then. Most recently he was switched from diazepam back to Xanax. He takes this up to once a day. Last took Xanax 4 to 5 days ago. He is prescribed this by his PCP for anxiety. In the ER no further seizures have occurred. CT head was repeated with no acute intracranial abnormalities. Prolactin has been normal both occasions. Urine toxicology positive for barbiturates. He was referred to medicine for admission ongoing management of seizures. Principal Diagnosis Seizure vs. other Discharge Data Allergies Allergy/AdvReac Type Severity Reaction Status Date / Time No Known Allergies Allergy Verified 11/06/20 15:48 Consultations 11/06/20 18:01 ED Decision to Admit Stat 11/06/20 20:48 Consult Neurology Routine 11/06/20 22:41 Consult Psychiatry Routine Ordered Studies 11/06/20 15:38 CT head/brain wo con Stat Hospital Course (1) Observed seizure-like activity: Convincing story of tonic-clonic seizures in the setting of hypertension, anxiety, insomnia, and caffeine use. - MRI brain previously normal on 10/17/2020, no need to repeat this. - EEG pending - Lorazepam 2 mg IV PRN for further seizures - Consulted neurology -> No indication for AED at this time. Will see what EEG shows. Discharge with Holter monitor to check for arrthymia. Left AMA on 11/08/2020 before I could see the patient. (2) Malignant hypertension: BP is 175/100 today. - Continue amlodipine 10mg PO daily - Consider addition of propranolol for migraine prophylaxis in addition if continued elevated BP requiring hydralazine - Hydralazine 10 mg IV PRN (3) Insomnia: - Lorazepam 1mg PO HS PRN (try to avoid as may effect EEG results) (4) ADHD: Avoid Adderall in setting of recent seizure as this can lower seizure threshold. (5) Anxiety: Significantly agitated on exam, possibly manic although unclear history of true manic episodes. - Continue fluoxetine 40mg PO HS - Consulted psychiatry given flight of ideas with possible shantelle (6) DVT prophylaxis: SCDs - Low DVT risk per admission calculator Total Time Total Time Spent Total Time Spent (In Minutes): 0 Discharge Plan Discharge Items Reason For Visit: SEIZURE-LIKE ACTIVITY Follow-up/Referrals: PCP,NO [Primary Care Provider] - Medications and DC Order Prescriptions: No Action amlodipine [Norvasc] 5 mg Tablet 0 mg PO DAILY RF: 0 fluoxetine 40 mg Capsule 40 mg PO PM RF: 0 dextroamphetamine-amphetamine [Adderall] 30 mg Tablet 30 mg PO BID RF: 0 diphenhydramine HCl [Benadryl] 25 mg Capsule 50 mg PO DAILY PRN (Reason: HEADACHE/SLEEP) RF: 0 alprazolam [Xanax] 2 mg Tablet 2 mg PO BID PRN (Reason: Anxiety) RF: 0 acetaminophen [Tylenol Extra Strength] 500 mg Capsule 1,000 mg PO QID PRN (Reason: Pain) RF: 0 Admission Data Admit Date/Time: 11/06/20 18:33 Attending Provider: Lenny Alcaraz Admit Provider: Dick De Leon Primary Care Provider: HATTIE,CHICO Other Providers: Radha Toledo ; Lynn Alvares ; Lenny Alcaraz Other Interventions: Discharge Summary Assessment (RN) Last Done: 11/08/20 07:00 Coding Level of Care Code None Diagnoses Observed seizure-like activity R56.9 Malignant hypertension I10 Insomnia F51.04 Insomnia type: psychophysiologic ADHD F90.1 Attention deficit-hyperactivity disorder type: predominantly hyperactive Anxiety F41.9 DVT prophylaxis Z29.9
[2020-11-10 00:57] LABS: Amobarbital, Urine Conf NEGATIVE ng/mL (<100); Butalbital, Urine 404 ng/mL (<100); Pentobarbital, Urine Conf NEGATIVE ng/mL (<100); Phenobarbital, Urine NEGATIVE ng/mL (<100); Secobarbital, Urine Conf NEGATIVE ng/mL (<100)
--- NOTE | 2020-11-10 16:04 | Electroencephalogram ---
EEG Procedure Note Date of Service November 10, 2020 Start / End Times Start Time: 11:18 End Time: 11:38 Referring Physician Dick De Leon History ?seizures Home Medication List Medication Instructions Recorded Confirmed Type acetaminophen [Tylenol Extra 1,000 mg PO QID PRN 10/17/20 11/06/20 History Strength] alprazolam [Xanax] 2 mg PO BID PRN 10/17/20 11/06/20 History dextroamphetamine-amphetamine 30 mg PO BID 10/17/20 11/06/20 History [Adderall] diphenhydramine HCl [Benadryl] 50 mg PO DAILY PRN 10/17/20 11/06/20 History amlodipine [Norvasc] 0 mg PO DAILY 11/06/20 11/06/20 History fluoxetine 40 mg PO PM 11/06/20 11/06/20 History Inpatient Medication List Discontinued Medications Acetaminophen (Acetaminophen 325 Mg Tab) 650 mg PO Q4H PRN PRN Reason: Pain or Fever Stop: 12/06/20 20:47 Last Admin: 11/08/20 03:50 Dose: 650 mg Documented by: [id number] Admin: 11/06/20 22:22 Dose: 650 mg Documented by: [id number] Alprazolam (Alprazolam 0.5 Mg Tablet) 1 mg PO TID PRN PRN Reason: Anxiety/Agitation Stop: 12/07/20 12:03 Last Admin: 11/07/20 20:58 Dose: 1 mg Documented by: [id number] Admin: 11/07/20 12:19 Dose: 1 mg Documented by: [id number] Amlodipine Besylate (Amlodipine Besylate 5 Mg Tab) 5 mg PO NOW STA Stop: 11/06/20 19:10 Last Admin: 11/06/20 19:26 Dose: 5 mg Documented by: [id number] Amlodipine Besylate (Amlodipine Besylate 5 Mg Tab) 5 mg PO DAILY NICHOLAS Stop: 12/06/20 20:47 Last Admin: 11/06/20 21:17 Dose: 5 mg Documented by: [id number] Amlodipine Besylate (Amlodipine Besylate 5 Mg Tab) 10 mg PO DAILY NICHOLAS Stop: 12/07/20 08:59 Last Admin: 11/07/20 07:57 Dose: 10 mg Documented by: [id number] Fluoxetine HCl (Fluoxetine Hcl 20 Mg Cap) 40 mg PO PM NICHOLAS Stop: 12/06/20 21:24 Last Admin: 11/07/20 20:58 Dose: 40 mg Documented by: [id number] Admin: 11/06/20 22:21 Dose: 40 mg Documented by: [id number] Hydralazine HCl (Hydralazine Hcl 20 Mg/Ml Vial) 10 mg IV Q4H PRN PRN Reason: sBP > 180 Stop: 12/06/20 21:22 Last Admin: 11/08/20 03:50 Dose: 10 mg Documented by: [id number] Sodium Chloride (Nss 1000ml) 1,000 mls @ 999 mls/hr IV .Q1H1M NICHOLAS Stop: 11/06/20 16:45 Last Infusion: 11/06/20 16:59 Dose: 0 mls/hr Documented by: [id number] Admin: 11/06/20 15:58 Dose: 999 mls/hr Documented by: [id number] Ketorolac Tromethamine (Ketorolac Tromethamine 15 Mg/Ml Vial) 15 mg IV Q6H PRN PRN Reason: Pain Stop: 11/11/20 21:24 Last Admin: 11/08/20 03:50 Dose: 15 mg Documented by: [id number] Admin: 11/07/20 15:45 Dose: 15 mg Documented by: [id number] Admin: 11/07/20 07:57 Dose: 15 mg Documented by: [id number] Admin: 11/07/20 00:35 Dose: 15 mg Documented by: [id number] Lorazepam (Lorazepam 1 Mg Tab) 1 mg PO QPM PRN PRN Reason: Insomnia Stop: 12/06/20 21:33 Last Admin: 11/07/20 23:30 Dose: 1 mg Documented by: [id number] Admin: 11/07/20 00:35 Dose: 1 mg Documented by: [id number] Miscellaneous (Remove Nicoderm Patch) 1 ea N/A DAILY@0859 [facility] Stop: 12/07/20 08:58 Last Admin: 11/07/20 06:23 Dose: 1 ea Documented by: [id number] Morphine Sulfate (Morphine Sulfate 2 Mg/Ml Carp) 2 mg IV NOW STA Stop: 11/07/20 03:08 Last Admin: 11/07/20 03:10 Dose: 2 mg Documented by: [id number] Nicotine (Nicotine 21 Mg/24 Hr Tdsy) 21 mg TD QAM NICHOLAS Stop: 12/06/20 15:44 Last Admin: 11/07/20 07:59 Dose: Not Given Documented by: [id number] Admin: 11/06/20 15:56 Dose: 21 mg Documented by: [id number] Description This is a 21 electrode EEG with a single channel dedicated to limited EKG. The electrodes were placed in accordance with the International 10-20 system. History: ?seizures Rx: xanax, fluoxetine Start/Stop: 11:18am/11:38am Attending reading: Radha Toledo EEG Description: EEG background: Background was symmetric alpha rhythm with mild overriding muscle artifact. A well formed 9-10 Hz posterior dominant rhythm was observed. The EEG is continuous. There is variability and reactivity present. Activation and reactivity: Photic stimulation performed without any abnormalities noted. No photic driving observed. Hyperventilation was not performed. Sleep: No sleep architecture noted. Epileptiform discharges: No clear epileptiform discharges were observed. Rhythmic and periodic patterns: None Seizures: None Impression: This was a normal awake EEG. No seizures or epileptiform discharges were seen. Clinical correlation required. [facility] EEG Procedure Codes Indication for Procedure (1) Observed seizure-like activity: Neurology Neurology: 25442 EEG include record awake & drowsy
== END 2020-11-08 07:00 | disposition left against medical advice (07) | DRG 101 ==
LOC: ED 15:12 → SUATTDRO 18:33 → 2S 18:33

== ENCOUNTER 2020-12-22 15:07 | Inpatient (IN) ==
[2020-12-22 15:48] LABS: Basophils # (auto) 0.02 K/uL (0-0.2); Basophils % (auto) 0.2 %; Eosinophils # (auto) 0.04 K/uL (0-0.5); Eosinophils % (auto) 0.4 %; Hematocrit (blood only) 41.5 % (42-52); Immature Granulocytes # (auto) 0.07 K/uL (0.00-0.02); Immature Granulocytes % (auto) 0.7 %; Lymphocytes # (auto) 1.53 K/uL (1.2-3.4); Lymphocytes % (auto) 15.4 %; Mean Corpuscular Hgb Conc 33.7 g/dL (32-36); Mean Corpuscular Volume 91.8 fL (80-100); Mean Platelet Volume 8.5 fL (7.4-10.4); Monocytes # (auto) 0.98 K/uL (0.11-0.59); Monocytes % (auto) 9.9 %; Neutrophils # (auto) 7.29 K/uL (1.4-6.5); Neutrophils % (auto) 73.4 %; Platelet Count 370 K/uL (130-400); RDW Coefficient of Variation 13.4 % (11.5-14.5); RDW Standard Deviation 45.4 fL (36.4-46.3); Red Blood Count 4.52 M/uL (4.7-6.1); White Blood Count 9.93 K/uL (4.8-10.8)
[2020-12-22 16:03] LABS: Albumin Level 4.2 gm/dl (3.4-5.0); BUN Creatinine Ratio 6.8 (10-20); Calcium 9.1 mg/dl (8.5-10.1); Est GFR (African American) 44.7 ml/min; Est GFR (Non-African American) 38.5 ml/min; Potassium 3.6 mmol/L (3.5-5.1)
[2020-12-22 16:06] LABS: Albumin Globulin Ratio 1.1 (0.9-2); Bilirubin,Total 0.5 mg/dl (0.2-1); Globulin 3.9 gm/dl (2.5-4.0); Total Protein 8.1 gm/dl (6.4-8.2)
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
[2020-12-22] MEDS ORDERED: SODIUM CHLORIDE 0.9% 1000ML 1,000 ML IV ONE ×2 (17:09→17:23)
[2020-12-22 17:20] LABS: Magnesium 3.9 mg/dl (1.8-2.4)
[2020-12-22 17:22] LABS: Acetaminophen < 2 ug/ml (10-30); Salicylate 2.1 mg/dl (2.8-20)
--- NOTE | 2020-12-22 17:57 | Electrocardiogram Report ---
Test Reason : Blood Pressure : / mmHG Vent. Rate : 141 BPM Atrial Rate : 141 BPM P-R Int : 096 ms QRS Dur : 094 ms QT Int : 312 ms P-R-T Axes : -24 036 033 degrees QTc Int : 477 ms Sinus tachycardia Nonspecific ST abnormality Abnormal ECG When compared with ECG of 06-NOV-2020 15:55, ST now depressed in Anterolateral leads Confirmed by Asher Lomax ([id number]) on 12/22/2020 5:57:31 PM Referred By: Confirmed By:Didier Lomax
[2020-12-22 18:19] LABS: Appearance Urine Turbid (Clear); Bacteria Urine Automated Negative (Negative); Bilirubin Urine Negative (Negative); Blood Urine 3+ (Negative); Color Urine Yellow; Epithelial Cell Urine Auto >30 /lpf (0-5); Glucose Urine UA Negative (Negative); Ketones Urine Trace (Negative); Leukocyte Esterase Urine Negative (Negative); Nitrite Urine Negative (Negative); Protein Urine 2+ (Negative); RBC Urine Automated 0-4 /hpf (0-4); Urobilinogen Urine Negative (Negative); pH Urine 5.5 (4.5-7.5)
--- NOTE | 2020-12-22 18:34 | Emergency Department Note ---
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 of ALARA. CT DOSE: 1057.71 mGy.cm FINDINGS: Brain parenchyma: The brain parenchyma is normal in appearance. There is no hemorrhage, mass effect, or evidence of acute territorial ischemia by CT criteria. Barba-white matter differentiation is preserved. No extra-axial fluid collection is seen. Ventricles, sulci, cisterns: Normal in configuration. Intracranial vasculature: The visualized intracranial vasculature at the skull base is normal in appearance. Calvarium: There is no depressed calvarial fracture. Sinuses and mastoids: The visualized paranasal sinuses are clear. The mastoid air cells are well pneumatized. Orbits: The bony orbits are grossly intact. IMPRESSION: No acute intracranial abnormality. ACT 112: Negative or not required by law. Electronically signed by: Dhiraj White M.D. 12/22/2020 4:49 PM ECG Data Indication: + other (Seizure) Rate (beats per minute): 141 Rhythm: + sinus tachycardia ECG Intervals/blocks: + Normal QRS, + Normal [place] and + Normal QT-c ECG ST segments: + Normal ST segments [facility] Narrative 1605: The patient was evaluated in room B12. A complete history and physical exam was performed Cardiac monitoring: An order was placed for continuous cardiac monitoring. The monitor shows a rate of 90 with sinus rhythm EMR reviewed. Patient was admitted from November 06, 2020 to November 08, 2020 for similar episode. Patient was seen by neurology and psychiatry at that time. Per psychiatry's note the patient misuses his Adderall and benzodiazepine causing withdrawal. Patient was seen by neurology and he had an outpatient EEG done on November 10, 2020 which was within normal limits. MRI from October 17, 2020 was within normal limits. Nursing reports me that in the patient's pocket was a prescription for Adderall and its was filled yesterday. There were only 35 tablets in the prescription bottle today. Patient denies taking more Adderall than he has been supposed to. 1730: Labs within normal limits. Anion gap elevated 21. Creatinine 2.05. Patient does have CKD. Lactic acid 4.7. Prolactin 24.6. Is thought that the patient's lactic acid elevation is due to his seizure. We will check a serum osmolality given the elevated anion gap and the patient's history of substance abuse to make sure the patient did not ingest any ethylene glycol or methanol. Patient denies any ingestion of antifreeze or when she wiper fluid. 1839: Osmolar gap within normal limits. Discussed with poison control who recommends supportive care for the amphetamine abuse/ingestion as it is not sure if the patient has been ingesting excess amounts of his amphetamine with the large number of Adderall missing from when it was filled yesterday. They also recommend checking a CK. Will finish 2 L IV fluid bolus and then recheck lactic acid, creatinine kinase, and repeat metabolic profile. 2100: Repeat lactic acid after 2 L IV fluid 1.4. Repeat creatinine after 2 L IV fluids 1.91. Anion gap closed. Creatinine kinase 1070 2:08 liters IV fluid. Patient is agreeable to stay in the hospital. Is thought that the patient suffered a seizure secondary to his polysubstance abuse. Discussed the case with [facility] neurology on-call Dr. Kirkland and he recommends Keppra 1 g IV piggyback now and then Keppra 500 mg twice daily. He states he will evaluate the patient tomorrow. Patient will be admitted to the [facility] hospitalist team Dr. Hilton notified. Impression & Plan Observed seizure-like activity, Rhabdomyolysis, Amphetamine abuse Discharge Plan Visit Data Chief Complaint: Seizure ED Provider: Iam Oh Discharge Problem: Observed seizure-like activity, Rhabdomyolysis, Amphetamine abuse Patient Disposition: Admitted As Inpatient Discharge Instructions Interventions: ED Discharge Assessment Last Done: 12/22/20 23:57 Discharge Problem: Rhabdomyolysis Qualifiers: Rhabdomyolysis type: non-traumatic Qualified Code(s): M62.82 - Rhabdomyolysis
[2020-12-22 18:46] LABS: Cast Urine Automated 0 /lpf (0-5); Renal Epithelial Cells Urine 0-5 /lpf (0-5)
[2020-12-22 18:47] LABS: Amorphous Sediment Urine Present (None Prsent)
[2020-12-22 19:12] LABS: Amphetamines+Metham, Urine Pos (Neg); Barbiturates, Urine Neg (Neg); Benzodiazepine, Urine Pos (Neg); Cocaine, Urine Neg (Neg); MDMA (Ecstacy), Urine Neg (Neg); Methadone, Urine Neg (Neg); Opiate, Urine Neg (Neg); Phencyclidine, Urine Neg (Neg)
[2020-12-22 20:23] LABS: BUN Creatinine Ratio 8.5 (10-20); Calcium 8.1 mg/dl (8.5-10.1); Creatinine Clr Calc Pharmacy 51.5 ml/min; Est GFR (African American) 48.6 ml/min; Potassium 3.1 mmol/L (3.5-5.1)
[2020-12-22] MEDS ORDERED: SODIUM CHLORIDE 0.9% 1000ML 1,000 ML IV SCH (21:00)
[2020-12-22] MEDS ORDERED: levETIRAcetam 1,000 MG in 0.9 % SODIUM CHLORIDE 100 ML IV STA (21:02)
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
[2020-12-23] MEDS ORDERED: ACETAMINOPHEN 325 MG TAB PO PRN (01:15)
[2020-12-23] MEDS ORDERED: ONDANSETRON INJ 2 MG/ML 2 ML VIAL IV PRN (01:15)
[2020-12-23] MEDS ORDERED: POTASSIUM CHLORIDE CRTAB 20 MEQ TABCR PO STA (01:15)
[2020-12-23] MEDS: cloNIDine HCL 0.1 MG TAB PO SCH ×3 (02:11→21:07)
[2020-12-23] MEDS: SODIUM CHLORIDE 0.9% 1000ML 1,000 ML IV SCH ×3 (02:11→21:07)
[2020-12-23 05:56] LABS: Basophils # (auto) 0.02 K/uL (0-0.2); Basophils % (auto) 0.2 %; Eosinophils # (auto) 0.06 K/uL (0-0.5); Eosinophils % (auto) 0.6 %; Hematocrit (blood only) 37.3 % (42-52); Hemoglobin 12.8 g/dL (14.0-18.0); Immature Granulocytes # (auto) 0.02 K/uL (0.00-0.02); Immature Granulocytes % (auto) 0.2 %; Lymphocytes # (auto) 1.11 K/uL (1.2-3.4); Lymphocytes % (auto) 10.8 %; Mean Corpuscular Hemoglobin 30.5 pg (25-34); Mean Corpuscular Hgb Conc 34.3 g/dL (32-36); Mean Corpuscular Volume 88.8 fL (80-100); Mean Platelet Volume 8.2 fL (7.4-10.4); Monocytes # (auto) 1.45 K/uL (0.11-0.59); Monocytes % (auto) 14.1 %; Neutrophils # (auto) 7.64 K/uL (1.4-6.5); Neutrophils % (auto) 74.1 %; Platelet Count 270 K/uL (130-400); RDW Coefficient of Variation 13.7 % (11.5-14.5); RDW Standard Deviation 44.6 fL (36.4-46.3)
[2020-12-23 06:48] LABS: Albumin Level 3.8 gm/dl (3.4-5.0); BUN Creatinine Ratio 8.2 (10-20); Calcium 8.3 mg/dl (8.5-10.1); Creatinine Clr Calc Pharmacy 43.9 ml/min; Est GFR (African American) 38.7 ml/min; Est GFR (Non-African American) 33.4 ml/min; Magnesium 2.9 mg/dl (1.8-2.4); Potassium 3.7 mmol/L (3.5-5.1)
[2020-12-23 06:55] LABS: Albumin Globulin Ratio 1.1 (0.9-2); Bilirubin,Total 0.7 mg/dl (0.2-1); Globulin 3.3 gm/dl (2.5-4.0); Total Protein 7.1 gm/dl (6.4-8.2)
--- NOTE | 2020-12-23 07:31 | Magnetic Resonance Report ---
MRI OF THE BRAIN WITHOUT CONTRAST CLINICAL HISTORY: Syncope. COMPARISON STUDY: MRI of the brain October 17, 2020. Head CT December 22, 2020. TECHNIQUE: Utilizing a 1.5 Madeline magnet and dedicated coil, multiplanar, multiecho imaging of the bra in was performed without IV contrast. FINDINGS: Exam is mildly compromised by motion artifact. There are no foci of restricted diffusion to suggest acute infarct. No acute intracranial hemorrhage, midline shift or mass effect is present. Ve ntricular system is normal. Basilar cisterns are patent. There are no extra-axial collections. Flow-v oids for the major intracranial vessels are present. The appearance of the brain is unchanged since M RI of October 17, 2020. No intracranial masses are identified on this unenhanced examination. The right maxillary sinus is somewhat diminutive. Calvarial signal is normal. Coronal FLAIR sequence is compro mised by motion artifact. IMPRESSION: No acute intracranial findings. ACT 112: Negative or not required by law. Electronically signed by: Dominik Singh M.D. 12/23/2020 7:30 AM
[2020-12-23] MEDS: ESCITALOPRAM OXALATE 20 MG TAB PO SCH (08:02)
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
--- NOTE | 2020-12-23 16:09 | Electroencephalogram ---
EEG Procedure Note Date of Service December 23, 2020 Start / End Times Start Time: 11:44 AM End Time: 12:04 AM Referring Physician Thiago Terrazas MD History Seizure-like episode Home Medication List Medication Instructions Recorded Confirmed Type alprazolam [Xanax] 1 mg PO UD PRN 12/22/20 12/22/20 History amlodipine 5 mg PO DAILY 12/22/20 12/22/20 History amphetamine sulfate 30 mg PO TID 12/22/20 12/22/20 History clonidine HCl 0.1 mg PO BID 12/22/20 12/22/20 History escitalopram oxalate 20 mg PO DAILY 12/22/20 12/22/20 History Inpatient Medication List Clonidine HCl (Clonidine Hcl 0.1 Mg Tab) 0.1 mg PO BID NICHOLAS Stop: 01/22/21 01:14 Last Admin: 12/23/20 08:02 Dose: 0.1 mg Documented by: [id number] Admin: 12/23/20 02:11 Dose: 0.1 mg Documented by: [id number] Cosigned by: [id number] Escitalopram Oxalate (Escitalopram Oxalate 20 Mg Tab) 20 mg PO DAILY NICHOLAS Stop: 01/22/21 08:59 Last Admin: 12/23/20 08:02 Dose: 20 mg Documented by: [id number] Sodium Chloride (Nss 1000ml) 1,000 mls @ 100 mls/hr IV .Q10H NICHOLAS Stop: 01/22/21 01:14 Last Infusion: 12/23/20 12:31 Dose: 100 mls/hr Documented by: [id number] Infusion: 12/23/20 11:18 Dose: 0 mls/hr Documented by: [id number] Admin: 12/23/20 10:14 Dose: 100 mls/hr Documented by: [id number] Infusion: 12/23/20 10:14 Dose: 100 mls/hr Documented by: [id number] Admin: 12/23/20 02:11 Dose: 100 mls/hr Documented by: [id number] Cosigned by: [id number] Discontinued Medications Sodium Chloride (Nss 1000ml) 1,000 mls @ 999 mls/hr IV .Q1H1M ONE Stop: 12/22/20 18:09 Last Infusion: 12/22/20 18:40 Dose: 0 mls/hr Documented by: [id number] Admin: 12/22/20 17:16 Dose: 999 mls/hr Documented by: [id number] Sodium Chloride (Nss 1000ml) 1,000 mls @ 999 mls/hr IV .Q1H1M ONE Stop: 12/22/20 18:23 Last Infusion: 12/22/20 19:44 Dose: 0 mls/hr Documented by: [id number] Admin: 12/22/20 18:44 Dose: 999 mls/hr Documented by: [id number] Sodium Chloride (Nss 1000ml) 1,000 mls @ 125 mls/hr IV .Q8H NICHOLAS Stop: 01/21/21 20:59 Last Infusion: 12/23/20 01:59 Dose: 0 mls/hr Documented by: [id number] Admin: 12/22/20 20:52 Dose: 125 mls/hr Documented by: [id number] Levetiracetam 1,000 mg/ Sodium (Chloride) 110 mls @ 440 mls/hr IV NOW STA Stop: 12/22/20 21:16 Last Infusion: 12/22/20 21:59 Dose: 0 mls/hr Documented by: [id number] Admin: 12/22/20 21:44 Dose: 440 mls/hr Documented by: [id number] Potassium Chloride (Potassium Chloride Crtab 20 Meq Tabcr) 40 meq PO NOW STA Stop: 12/23/20 01:16 Last Admin: 12/23/20 02:11 Dose: 40 meq Documented by: [id number] Cosigned by: [id number] Description This is a 21 electrode EEG with a single channel dedicated to limited EKG. The electrodes were placed in accordance with the International 10-20 system. There is a posterior dominant rhythm of 9 to 10 Hz which is symmetrically distributed and attenuates with eye opening. There is a normal anterior to posterior organization. Photic stimulation is unremarkable. Hyperventilation is not performed. There is intermittent 3 and half to 4 Hz left temporoparietal slowing. There are no epileptiform abnormalities. Interpretation Borderline abnormal awake/drowsy EEG with some evidence of focal left temporoparietal slowing. No epileptiform abnormalities. Further clinical and imaging correlation required. [facility] EEG Procedure Codes Indication for Procedure (1) Seizure: Neurology Neurology: [id number] EEG include record awake & drowsy
[2020-12-23] MEDS ORDERED: amLODIPine BESYLATE 5 MG TAB PO ONE (17:03)
[2020-12-23] MEDS ORDERED: Nursing to Pharmacy Communication SCH (18:30)
[2020-12-24] MEDS: levETIRAcetam 500 MG TAB PO SCH ×2 (05:32→17:19)
[2020-12-24 05:38] LABS: Basophils # (auto) 0.05 K/uL (0-0.2); Basophils % (auto) 0.6 %; Eosinophils # (auto) 0.15 K/uL (0-0.5); Eosinophils % (auto) 1.7 %; Hematocrit (blood only) 35.1 % (42-52); Immature Granulocytes # (auto) 0.01 K/uL (0.00-0.02); Immature Granulocytes % (auto) 0.1 %; Lymphocytes # (auto) 1.41 K/uL (1.2-3.4); Lymphocytes % (auto) 16.1 %; Mean Corpuscular Hemoglobin 30.9 pg (25-34); Mean Corpuscular Hgb Conc 34.2 g/dL (32-36); Mean Corpuscular Volume 90.5 fL (80-100); Mean Platelet Volume 7.9 fL (7.4-10.4); Monocytes # (auto) 1.25 K/uL (0.11-0.59); Monocytes % (auto) 14.3 %; Neutrophils % (auto) 67.2 %; Platelet Count 237 K/uL (130-400); RDW Coefficient of Variation 13.7 % (11.5-14.5); RDW Standard Deviation 45.2 fL (36.4-46.3); Red Blood Count 3.88 M/uL (4.7-6.1); White Blood Count 8.77 K/uL (4.8-10.8)
[2020-12-24 06:27] LABS: Albumin Level 3.6 gm/dl (3.4-5.0); BUN Creatinine Ratio 9.4 (10-20); Calcium 8.7 mg/dl (8.5-10.1); Creatinine Clr Calc Pharmacy 44.3 ml/min; Est GFR (African American) 39.1 ml/min; Est GFR (Non-African American) 33.7 ml/min; Magnesium 2.2 mg/dl (1.8-2.4); Potassium 3.6 mmol/L (3.5-5.1)
[2020-12-24] MEDS: SODIUM CHLORIDE 0.9% 1000ML 1,000 ML IV SCH ×2 (06:36→17:23)
[2020-12-24 06:42] LABS: Albumin Globulin Ratio 1.1 (0.9-2); Bilirubin,Total 0.8 mg/dl (0.2-1); Globulin 3.4 gm/dl (2.5-4.0)
[2020-12-24] MEDS: ESCITALOPRAM OXALATE 20 MG TAB PO SCH (08:14)
[2020-12-24] MEDS: cloNIDine HCL 0.1 MG TAB PO SCH ×2 (08:14→20:19)
[2020-12-24] MEDS: amLODIPine BESYLATE 5 MG TAB PO SCH (08:14)
[2020-12-24] MEDS ORDERED: LORazepam 0.5 MG/1 ML VIAL IV STA (08:37)
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
[2020-12-24] MEDS: LORazepam 1 MG TAB PO PRN ×2 (17:19→23:41)
[2020-12-25] MEDS: SODIUM CHLORIDE 0.9% 1000ML 1,000 ML IV SCH ×2 (03:47→11:40)
[2020-12-25] MEDS: levETIRAcetam 500 MG TAB PO SCH ×2 (06:37→17:48)
[2020-12-25 07:17] LABS: 7-Aminoclonaz, Confirm NEGATIVE ng/mL (<25); Amphetamine Urine, Confirm >15000 ng/mL (<250); Hydro-Alp Ur, GC/MS 28 ng/mL (<25); Hydroxyethylflurazepam, Conf NEGATIVE ng/mL (<50); Hydroxymidazolam Ur, GC/MS >2000 ng/mL (<50); Hydroxytriazolam NEGATIVE ng/mL (<50); Lorazepam, Ur GC/MS 155 ng/mL (<50); Methamphetamine, Ur Confirm NEGATIVE ng/mL (<250); Nordiazepam, Confirm NEGATIVE ng/mL (<50); Oxazepam Ur, GC/MS NEGATIVE ng/mL (<50); Temazepam, Confirm NEGATIVE ng/mL (<50)
[2020-12-25 07:22] LABS: Basophils # (auto) 0.02 K/uL (0-0.2); Basophils % (auto) 0.3 %; Eosinophils # (auto) 0.15 K/uL (0-0.5); Eosinophils % (auto) 1.9 %; Hematocrit (blood only) 36.1 % (42-52); Hemoglobin 12.7 g/dL (14.0-18.0); Immature Granulocytes # (auto) 0.02 K/uL (0.00-0.02); Immature Granulocytes % (auto) 0.3 %; Lymphocytes # (auto) 1.71 K/uL (1.2-3.4); Lymphocytes % (auto) 21.7 %; Mean Corpuscular Hemoglobin 30.8 pg (25-34); Mean Corpuscular Hgb Conc 35.2 g/dL (32-36); Mean Corpuscular Volume 87.6 fL (80-100); Mean Platelet Volume 8.2 fL (7.4-10.4); Monocytes # (auto) 1.13 K/uL (0.11-0.59); Monocytes % (auto) 14.3 %; Neutrophils # (auto) 4.86 K/uL (1.4-6.5); Neutrophils % (auto) 61.5 %; Platelet Count 265 K/uL (130-400); RDW Coefficient of Variation 13.3 % (11.5-14.5); Red Blood Count 4.12 M/uL (4.7-6.1); White Blood Count 7.89 K/uL (4.8-10.8)
[2020-12-25] MEDS ORDERED: BENZOCAINE 20% (ORAJEL) 11.9 GM TUBE MT PRN (07:44)
[2020-12-25] MEDS: cloNIDine HCL 0.1 MG TAB PO SCH ×2 (07:45→20:01)
[2020-12-25] MEDS: amLODIPine BESYLATE 5 MG TAB PO SCH (07:46)
[2020-12-25] MEDS: ESCITALOPRAM OXALATE 20 MG TAB PO SCH (07:46)
[2020-12-25 07:56] LABS: BUN Creatinine Ratio 8.2 (10-20); Calcium 8.4 mg/dl (8.5-10.1); Creatinine Clr Calc Pharmacy 52.6 ml/min; Est GFR (Non-African American) 41.4 ml/min; Magnesium 1.8 mg/dl (1.8-2.4); Potassium 3.5 mmol/L (3.5-5.1)
[2020-12-25 07:58] LABS: Albumin Globulin Ratio 1.1 (0.9-2); Bilirubin,Total 0.8 mg/dl (0.2-1); Globulin 3.7 gm/dl (2.5-4.0); Total Protein 7.7 gm/dl (6.4-8.2)
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
--- NOTE | 2020-12-27 15:24 | XCELERA ---
[id number]
== END 2020-12-25 21:30 | disposition home or self-care (01) | DRG 101 ==
LOC: ED 15:07 → SUATTDRO 21:41 → 2S 21:41